=== PATIENT | female | born 1995 | race Caucasian/White ===

== ENCOUNTER 2018-05-26 12:16 | Outpatient (CLI) | END 2018-05-26 14:40 | disposition home or self-care (01) ==

== ENCOUNTER 2018-06-21 04:35 | Outpatient (CLI) | END 2018-06-21 10:13 | disposition home or self-care (01) ==

== ENCOUNTER 2018-06-30 08:10 | Outpatient (CLI) | END 2018-06-30 11:10 | disposition home or self-care (01) ==

== ENCOUNTER 2018-07-04 00:20 | Inpatient (IN) | END 2018-07-08 13:45 | disposition home or self-care (01) | DRG 775 ==